=== PATIENT | male | born 1970 | race Caucasian/White ===

== ENCOUNTER 2016-11-03 16:24 | Inpatient (IN) | payer OTHER ==
--- NOTE | ~2016-11-03 | EKG ---
PATIENT: MARKO WARREN UNIT #: [id number] Ventricular Rate: 104 BPM Atrial Rate: 104 BPM P-R Interval: 180 ms QRS Duration: 92 ms Q-T Interval: 370 ms QTC Calculation(Bezet): 486 ms P [place]: 78 degrees Calculated R [place]: -32 degrees Calculated T [place]: 141 degrees Diagnosis Line: Sinus tachycardia Diagnosis Line: Biatrial enlargement Diagnosis Line: Left axis deviation Diagnosis Line: T wave abnormality, consider lateral ischemia Diagnosis Line: Abnormal ECG Diagnosis Line: When compared with ECG of 04-AUG-2016 15:05, Diagnosis Line: No significant change was found Diagnosis Line: Confirmed by DYLAN STANLEY MD ([id number]) on 11/05/2016 Diagnosis Line: 10:00:36 AM INTERPRETING MD: LIZETH LOPEZ
--- NOTE | ~2016-11-03 | CR72 ---
[facility] A Service of [facility] & [facility] RADIOLOGY TEXT RESULTS PATIENT: MARKO WARREN LOCATION: [facility] 568- : 70 UNIT #: [id number] AGE: [address]: Ina Jang MD SEX: M ORDER DR: [id number] [id number] I MR#: [id number] Acc #: [id number] NAME: MARKO WARREN. : 1970 SEX: M STUDY DATE/TIME: 11/03/2016 16:58 UNIT: SEDOF ROOM: [facility] STUDY DESCRIPTION: CR Chest Single View Portable Attending Physician: Ina Jang M.D. Ordering Physician: Noe Lange M.D. Primary Care Physician: Vicente Magana M.D. MEDICAL IMAGING REPORT This report is preliminary unless electronic signature is present. EXAM Portable chest 11/03/2016 HISTORY 45-year-old male with chest pain and shortness of air beginning today. COMPARISON STUDIES Chest 08/04/2016. FINDINGS Frontal chest demonstrates stable cardiomegaly. Mediastinum and pulmonary vasculature are unremarkable. Lungs clear. No pleural effusion or pneumothorax. IMPRESSION Stable cardiomegaly. No other acute chest findings. Dictated by... Vicente Chong M.D. THIS IS AN ELECTRONICALLY VERIFIED REPORT Vicente Chong M.D. at 11/04/2016 10:57 PM BOWEN/pcl TD: 11/03/2016 21:18 JOB #: [id number] MEDICAL IMAGING REPORT Page 1 of 1
--- NOTE | ~2016-11-03 | DS ---
Unit #: [id number] #: [id number] Patient: MARKO WARREN [id number] [address] [place], [place] [address] [id number] I MR#: [id number] NAME: MARKO WARREN. ROOM: 568 Age: 45 Sex: M Admission Date: 11/04/2016 : 1970 Discharge Date: 11/05/2016 Attending Physician: Ina Jang M.D. Primary Care Physician: Vicente Magana M.D. DISCHARGE SUMMARY DISCHARGE DIAGNOSES 1. Nonischemic cardiomyopathy with an ejection fraction of 10%. 2. Acute on chronic systolic congestive heart failure with volume overload. 3. Severe pulmonary hypertension. 4. Moderate to severe mitral regurgitation and tricuspid regurgitation. 5. Normal coronaries per cath in 06/2016. 6. Hypertension. CONSULTANTS Dr. Ryan. HOSPITAL COURSE The patient is a 45-year-old male who is known to our group. He is known to our group for nonischemic cardiomyopathy and chronic systolic congestive heart failure, ejection fraction at 10%, moderate to severe TR, and hypertension. The patient had a normal cath in 06/2016. The patient presented to the emergency department with complaints of dyspnea on exertion. The patient reports that he ran out of his samples of Entresto. Patient was treated with IV Bumex. Also his carvedilol and Vasotec were increased. His blood pressure has shown improvement throughout his hospital course. I have discussed this case with Dr. Mabry and he is agreeable. Patient is stable for discharge. FOLLOWUP INSTRUCTIONS 1. Discharge home. 2. Followup with Dr. Mabry in three weeks. 3. Healthy heart diet. 4. Low sodium. 5. Activity as tolerated. 6. Followup with pulmonary per their recommendations. 7. Patient should seek medical attention or return to ER if signs or symptoms worsen. DISCHARGE MEDICATIONS 1. Ventolin one puff q.4 hours p.r.n. shortness of breath. 2. Entresto 24 mg/26 mg 1 tab p.o. b.i.d., samples were given to the patient. He is to start this medicine on 11/07/2016. 3. Magnesium oxide 400 mg p.o. daily. 4. Carvedilol 12.5 mg p.o. b.i.d. 5. Lasix 40 mg p.o. daily. Unit #: [id number] #: [id number] Patient: MARKO WARREN 6. Lipitor 20 mg p.o. at bedtime. 7. Aspirin 81 mg p.o. daily. 8. Spironolactone 25 mg p.o. daily. 9. Prilosec 20 mg p.o. daily. The patient has been given samples of Entresto. Dictated by... Sommer Taveras A.P.R.N. for Darryl Mabry M.D. AM/jory TD: 11/05/2016 12:50 JOB #: [id number] DISCHARGE SUMMARY Page 1 of 1 X Sommer Taveras [employer]PORATE TRAFFIC MANAGER X DISCHARGE SUMMARY
--- NOTE | ~2016-11-03 | HP ---
Unit #: [id number] #: [id number] Patient: MARKO DOLAN [id number] [facility]. [place], [place] [address] [id number] I MR#: [id number] NAME: MARKO DOLAN. ROOM: 568 Age: 45 Sex: M Admission Date: 11/03/2016 : 1970 Attending Physician: Ina Jang M.D. Primary Care Physician: Vicente Magana M.D. HISTORY AND PHYSICAL CHIEF COMPLAINT Dyspnea on exertion, orthopnea, or palpitations. HISTORY OF PRESENT ILLNESS Mr. Dolan is a 45-year-old white male who was seen in June of this year and at that time he was diagnosed with acute on chronic systolic congestive heart failure with an EF of 10%. He had transaminitis and cardiac ascites from his congestive heart failure. He had a known history of COPD and was diagnosed with severe pulmonary hypertension, as well moderate to severe mitral regurgitation and moderate to severe tricuspid regurgitation. He underwent a right and let sided heart catheterization on 07/03/2016, which again showed an EF of 10%. Severe global hypokinesis, mild mitral regurgitation. He had normal coronaries. He had severe pulmonary arterial hypertension, pulmonary capillary wedge pressure was 16/21. Echocardiogram showed that again his EF was 10% to 15%. He had a patent foramen ovale with a left to right shunt, mildly enlarged right ventricular cavity, moderate to severe mitral regurgitation with moderate to severe tricuspid regurgitation, right ventricular systolic pressure of 34 mmHg. He also had a CT angiogram of his chest at that time, which showed multi chamber cardiomegaly, ground glass density, as well as ascites in the upper abdomen around the liver and spleen. The abdominal ultrasound done showed distention of the intrahepatic IVC and hepatic veins consistent with passive congestion. Gallbladder wall was abnormally thickened but nonspecific. He was seen by pulmonary, Dr. Ryan, on that admission as well for his pulmonary hypertension. He was to followup with both Dr. Mabry and with Dr. Ryan, but patient states that he was incarcerated secondary to lack of child support payment and did not have followup. He presents this admission stating that on Wednesday night he became severely short of breath. He had orthopnea. He was short of breath at rest without any activity, worsened by dyspnea on exertion. He was also having palpitations. He said he felt like his heart was racing at rest and as well with activity. No seamus chest pain. He denies any fever or chills and no cough. PAST MEDICAL HISTORY 1. Chronic systolic congestive heart failure with an ejection fraction of 10%. 2. Transaminitis in June with acute liver congestion and ascites. 3. Chronic obstructive pulmonary disease. 4. Elevated TSH with normal T3 and T4. 5. Severe pulmonary hypertension. 6. Moderate to severe mitral regurgitation and moderate to severe tricuspid regurgitation. 7. Tobacco abuse. Unit #: [id number] #: [id number] Patient: MARKO DOLAN PAST SURGICAL HISTORY 1. Right ankle surgery. 2. Right and left heart catheterization 06/2016. HOME MEDICATIONS Prilosec 20 mg daily; Vasotec 20 mg daily; Ventolin one puff every 4 hours p.r.n.; Lasix 40 mg daily; Coreg 6.25 mg twice daily; Lipitor 20 mg daily; Aldactone 25 mg daily; aspirin 81 mg daily. ALLERGIES Sulfamethizole from Bactrim; trimethoprim from Bactrim. SOCIAL HISTORY Status post recent incarceration for lack of child support payment. Tobacco abuse is half pack per day for 32 years. Quit drinking alcohol two years ago. Denies illicit drug use. Works in construction. FAMILY HISTORY Father had a stroke in his 40s and had a myocardial infarction in his 50s, as well as father underwent four vessel coronary artery bypass. REVIEW OF SYSTEMS CONSTITUTIONAL: Negative for fevers. Negative for chills. Negative for difficulty swallowing. No ear or eye pain. No rhinorrhea. CARDIOVASCULAR: Positive for dyspnea on exertion. Positive for orthopnea. Positive for palpitations. Denies lower extremity edema. No chest pain. GI: No vomiting or diarrhea. No constipation. No bright red bleeding per rectum. No melena. : No dysuria. No hematuria. ENDOCRINE: Denies diabetes. Denies hypothyroidism. Denies any weight loss or weight gain. SKIN: No rashes and no lesions. NEUROLOGIC: No difficulty with gait. No seizures. No syncope. No near syncope. PHYSICAL EXAMINATION GENERAL: Poorly kempt white male with many missing teeth and tattoos all about his arms, chest, and back, in no acute distress. VITAL SIGNS: Temp 97.9, pulse 98, respirations 18, blood pressure 147/108, 5 feet 9 inches, weight 80.6 kg, BMI 27. HEENT: Normocephalic and atraumatic. No xanthelasma. Pupils equal, round, reactive to light. Extraocular movements intact. NECK: Supple. Positive jugular venous distention. Positive elevated CVP approximately 10. Trachea is midline. LUNGS: Clear to auscultation anteriorly and posteriorly bilaterally all evans. HEART: S1 and S2. Positive S4. 2/6 murmur. No lift. PMI nondisplaced. ABDOMEN: Positive bowel sounds. Soft, nontender, nondistended. EXTREMITIES: No clubbing, cyanosis or edema. 2+ pulses bilaterally all evans. NEUROLOGIC: Awake, alert, and oriented x3. Speech is clear and appropriate. Good historian. No focal deficit. Moving all extremities spontaneously with equal strength. No facial drooping. SKIN: No rash. Again tattoos about the body, arms, chest, back. SPINE: No scoliosis. Unit #: [id number] #: [id number] Patient: MARKO DOLAN DIAGNOSTIC STUDIES IMAGING STUDIES: Chest x-ray 11/03/2016 shows stable cardiomegaly, no other acute findings. No pleural effusions. No pneumothorax. CARDIOLOGY STUDIES: 12 lead EKG shows a sinus tachycardia. Ventricular rate 104. T wave inversions in lead 1 and AVL, leads V2, V5 and V6. Left axis deviation. No acute ST elevation. Biatrial enlargement. LABORATORY STUDIES: Sodium 137, potassium 4.3, chloride 105, CO2 23, BUN 14, creatinine 0.8, glucose 113, calcium 9.2, magnesium 1.9, total protein 6.6, albumin 3.7, AST 23, ALT 18, alk phos 80, total bili 0.5, bili direct 0.2, bili indirect 0.3. BNP 2,655. Troponin 0.04. Back in June patient had a TSH of 0.33 with a free T4 of 1.04 and a free T3 of 3.7. PT 14.0, INR 1.3, PTT 25.3. Point of care Troponin less than 0.05, less than 0.05. Hemoglobin 14.0, hematocrit 41.2, white blood cell count 7.5, platelet count 226. ASSESSMENT AND PLAN 1. Nonischemic cardiomyopathy with EF 10%. 2. Acute on chronic systolic congestive heart failure with fluid volume overload. 3. Severe pulmonary hypertension. 4. Moderate to severe mitral regurgitation and tricuspid regurgitation. 5. History of normal coronary arteries per coronary catheterization in 06/2016. Plan we will begin IV diuresis, adjust his medications. M.D. to follow for any further recommendation. He had a normal lipid panel in June. We will discontinue a statin. Patient also had normal coronary arteries and he has not yet reached the age of 50. We will discontinue his aspirin. 6. Hypertension, uncontrolled. Increase Coreg. We will consult Dr. Ryan. 7. On increasing beta-mari we will also increase his SEDA inhibitor. We will add Bumex 1 mg IV twice daily, potassium 20 mEq twice daily, and mag oxide 400 mg daily. We will also get the report of his echo and coronary catheterization on the chart from 06/2016. Dictated by Susan Garcia/jory TD: 11/04/2016 11:31 JOB #: [id number] HISTORY AND PHYSICAL Page 1 of 1 X X HISTORY AND PHYSICAL
--- NOTE | ~2016-11-03 | CO ---
Unit #: [id number] #: [id number] Patient: MARKO WARREN [id number] [place], [place] [address] [id number] MR#: [id number] NAME: MARKO WARREN. ROOM: 568 Age: 45 Sex: M Admission Date: 11/03/2016 : 1970 Attending Physician: Ina Jang M.D. Primary Care Physician: Vicente Magana M.D. CONSULTATION REPORT REASON FOR CONSULTATION Shortness of breath, COPD, and pulmonary hypertension. CHIEF COMPLAINT Shortness of breath. HISTORY OF PRESENT ILLNESS A 45-year-old male with a past medical history of severe COPD and congestive heart failure is admitted with the complaint of dyspnea on exertion. I am seeing the patient at the bedside. He is complaining of shortness of breath. He denies any nausea, vomiting, or diarrhea. PAST MEDICAL HISTORY 1. Congestive heart failure. 2. Severe pulmonary hypertension. 3. Moderate mitral valve regurgitation. 4. Tobacco use. HOME MEDICATIONS As per MAR and have been reviewed. ALLERGIES Reviewed. REVIEW OF SYSTEMS Positive for pallor. No edema, no cyanosis, no jaundice. PHYSICAL EXAMINATION VITAL SIGNS: Temperature 98, pulse 87, respirations 12, and blood pressure 130/70. NEUROLOGICAL: Awake, alert, and oriented, with no neurological deficits. HEENT: Pupils equal, round, and reactive to light and accommodation. Extraocular movements are intact. NECK: Supple. No JVD. CHEST: Bilateral air entry, bilateral mild rhonchi. GASTROINTESTINAL: Nontender and soft. Bowel sounds positive. EXTREMITIES: No edema. SKIN: No rashes and no ulcers. LYMPHATICS: No lymphadenopathy. DIAGNOSTIC STUDIES LABORATORY: Reviewed. IMAGING: Reviewed. Unit #: [id number] #: [id number] Patient: MARKO WARREN ASSESSMENT 1. Chronic obstructive pulmonary disease. 2. Congestive heart failure. 3. Nonischemic cardiomyopathy. 4. Likely obstructive sleep apnea. 5. Severe pulmonary hypertension. PLAN Continue patient on oxygen, continue bronchodilator, and GI and DVT prophylaxis. Optimize cardiac status. He will need a sleep study as well. Patient will be closely monitored. Thank you very much for this consultation. Dictated by... Angelina Patterson/am TD: 11/04/2016 16:58 JOB #: [id number] CONSULTATION REPORT Page 1 of 1 X Yeyo Ryan MD CONSULTATION REPORT
[~2016-11-03 16:24] MED LIST: ALBUTEROL INHALER; ALBUTEROL INHALER INH; ALBUTEROL17 GM INH; ALBUTEROL20 ml INH; ALDACTONE25 MG PO; ANTIDEPRESSANT PO; ASPIRIN81 MG PO; BACTRIM DS TABL1 TA1 PO; BENAZEPRIL HCL40 MG PO; BENZAPRIL PO; BLOOD PRESSURE MED; COREG6.25 MG PO; DELTASONE20 MG PO; DIOVAN160 MG PO; K-DUR20 ME1 PO; KCL PO; LASIX PO; LASIX20 MG PO; LIPITOR20 MG PO; LISINOPRIL PO; LORTAB 7.5-5001 TAB PO; LOTENSIN PO; LOTENSIN40 MG PO; NEXIUM20 MG PO; NO MEDICATIONS; PREDNISONE50 MG PO; PRILOSEC PO; VASOTEC20 MG PO; VERAPAMIL HCL80 MG PO; VICODIN 5/1 TAB 5/50 PO; ZITHROMAX1 G/PKT PO
[2016-11-03 17:09] LABS: POC - CKMB 1.9 ng/mL (0.0-7.9); POC - TROPONIN <0.05 ng/mL (<=0.05)
[2016-11-03 17:33] LABS: BASOPHIL% 0.6 % (0-2.5); EOSINOPHIL# 0.1 X10e3 (0-0.7); EOSINOPHIL% 1.6 % (0.0-7.0); HEMATOCRIT 41.2 % (38.0-50.0); LYMPHOCYTE# 1.5 X10e3 (1.0-3.5); LYMPHOCYTE% 19.9 % (17.0-45.0); MEAN CELL VOLUME 88.7 FL (83-96); MEAN CORPUSCULAR HGB CONC 33.9 g/dL (30-36); MEAN PLATELET VOLUME 8.7 FL (6.5-11.5); MONOCYTE# 0.6 X10e3 (0-1.0); MONOCYTE% 7.7 % (3.0-12.0); NEUTROPHIL# 5.3 X10e3 (1.5-7.1); NEUTROPHIL% 70.2 % (40-75); PLATELET COUNT 226 X10e3 (140-420); RED BLOOD COUNT 4.65 X10e (3.90-5.60); WHITE BLOOD COUNT 7.5 X10e3 (4.0-10.5)
[2016-11-03 17:46] LABS: DIFF IND NO
[2016-11-03 17:55] LABS: INR 1.3; PARTIAL THROMBOPLASTIN TIME 25.3 SECONDS (23.5-31.3)
[2016-11-03 17:58] LABS: ALBUMIN SERUM 3.7 g/dL (3.5-5.0); BILIRUBIN, DIRECT 0.2 mg/dL (0.0-0.2); BILIRUBIN,INDIRECT 0.3 mg/dL (0.0-0.9); BILIRUBIN,TOTAL 0.5 mg/dL (0.2-2.0); CALCIUM SERUM 8.8 mg/dL (8.4-10.2); CREATININE SERUM 0.8 mg/dL (0.6-1.4); GLOM FILT RATE Estimated 107.9 mL/min (>60); POTASSIUM 3.5 mmol/L (3.5-5.1); PROTEIN TOTAL SERUM 6.6 g/dL (6.0-8.3)
[2016-11-03 18:53] LABS: POC - CKMB 2.4 ng/mL (0.0-7.9); POC - TROPONIN <0.05 ng/mL (<=0.05)
[2016-11-04 08:54] LABS: BUN/CREATININE RATIO 17.5; CALCIUM SERUM 9.2 mg/dL (8.4-10.2); CREATININE SERUM 0.8 mg/dL (0.6-1.4); GLOM FILT RATE Estimated 107.9 mL/min (>60); MAGNESIUM 1.9 mg/dL (1.6-3.0); POTASSIUM 4.3 mmol/L (3.5-5.1)
[2016-11-05] MEDS ORDERED: MAG-OX 400400 M1 PO (12:16)
[2016-11-05] MEDS ORDERED: ENTRESTO 24 MG1 EACH PO (12:17)
== END 2016-11-05 17:43 | disposition home or self-care (01) | DRG 292 ==
LOC: SED 16:24 → C5C 19:41 → SED 19:41 → SEDOF 19:41 → C5C 23:37 → SEDOF 11-04 00:40 → C5C 11-05 17:43
PROVIDERS: Internal Medicine Cardiovascular Disease; Physician Assistant
DX: I11.0 Hypertensive heart disease with heart failure (principal); I16.1 Hypertensive emergency; I27.2 Other secondary pulmonary hypertension; I42.9 Cardiomyopathy, unspecified; I50.23 Acute on chronic systolic (congestive) heart failure; I08.1 Rheumatic disorders of both mitral and tricuspid valves; J44.9 Chronic obstructive pulmonary disease, unspecified; G47.33 Obstructive sleep apnea (adult) (pediatric)
CPT/HCPCS: 36415; 71010; 80048; 80076; 82553; 83735; 83880; 84484; 85025; 85610; 85730; 93005; 94640; 94664; 94760; 96374; 99284